=== PATIENT | male | born 2000 | race American Indian/Alaskan Native ===

== ENCOUNTER 2018-05-13 14:09 | Emergency (ER) | payer OTHER ==
--- NOTE | 2018-05-13 14:42 | Emergency Department Report ---
Blank Doc - Documentation Documentation: 18 y male at work yesterday accidentally injured his finger while trying to ca tch himself from falling. no fall injury XR ACC evaluate
[2018-05-13 14:43] VITALS: BP 128/82
--- NOTE | 2018-05-13 15:36 | XRay Report ---
Left hand: Injury, pain. There is fragmentation of the distal tuft of the fifth digit and there is focal swelling of the distal digit. There may be a laceration at the nail bed. No foreign body noted. The remainder the fifth digit as well as the remainder of the hand is unremarkable. Impression: Fifth digit injury with tuft fracture.
--- NOTE | 2018-05-13 15:44 | Emergency Department Report ---
ED Extremity Problem HPI - General Chief complaint: Laceration/Recheck/Suture Stated complaint: LFT HAND PINKY/PAIN Time Seen by Provider: 05/13/18 14:38 Source: patient Mode of arrival: Ambulatory Limitations: Language Barrier - History of Present Illness Initial comments: Patient is a 18-year-old male who yesterday was on a scaffold and to ca tc himself from falling reached up and had his left pinky finger caught in between 2 pieces of wood. His nail was ripped off and he's had significant bleeding and pain at the distal left hand overnight. The patient states as a throbbing sensation is 8 out of 10 in severity. Patient denies any fevers chills it's time. - Related Data Previous Rx's Medication Instructions Recorded Last Taken Type Clindamycin [Clindamycin CAP] 300 mg PO Q8H 7 Days cap 05/13/18 Unknown Rx HYDROcodone/APAP 5-325 [Elverta 1 each PO Q6HR PRN #15 tablet 05/13/18 Unknown Rx 5/325] Ibuprofen [Motrin] 600 mg PO Q8H PRN #20 tablet 05/13/18 Unknown Rx ED Review of Systems ROS: Stated complaint: LFT HAND PINKY/PAIN Other details as noted in HPI Comment: All other systems reviewed and negative ED Past Medical Hx - Past Medical History Previous Medical History?: No - Surgical History Past Surgical History?: No - Social History Smoking Status: Never Smoker Substance Use Type: None - Medications Home Medications: Home Medications Medication Instructions Recorded Confirmed Last Taken Type Clindamycin [Clindamycin CAP] 300 mg PO Q8H 7 Days cap 05/13/18 Unknown Rx HYDROcodone/APAP 5-325 [Elverta 1 each PO Q6HR PRN #15 tablet 05/13/18 Unknown Rx 5/325] Ibuprofen [Motrin] 600 mg PO Q8H PRN #20 tablet 05/13/18 Unknown Rx ED Physical Exam - General Limitations: Language Barrier General appearance: alert, in no apparent distress - Head Head exam: Present: atraumatic, normocephalic - Eye Eye exam: Present: normal appearance - ENT ENT exam: Present: mucous membranes moist - Neck Neck exam: Present: normal inspection - Respiratory Respiratory exam: Present: normal lung sounds bilaterally. Absent: respiratory distress, wheezes, rales - Cardiovascular Cardiovascular Exam: Present: regular rate, normal rhythm. Absent: systolic murmur, diastolic murmur, rubs, gallop - GI/Abdominal GI/Abdominal exam: Present: soft, normal bowel sounds - Rectal Rectal exam: Present: deferred - Extremities Exam Extremities exam: Present: normal inspection, other (patient's left fifth digit shows injury to the nailbed. Of serious scabbed over with just minimal amount of bleeding currently. There is mild swelling and tenderness to palpation.) - Back Exam Back exam: Present: normal inspection - Neurological Exam Neurological exam: Present: alert, oriented X3 - Psychiatric Psychiatric exam: Present: normal affect, normal mood - Skin Skin exam: Present: warm, dry, intact, normal color. Absent: rash ED Course Vital Signs 05/13/18 14:40 Temperature 98.7 F Pulse Rate 66 Respiratory 18 Rate Blood Pressure 128/82 [Right] O2 Sat by Pulse 98 Oximetry ED Medical Decision Making - Radiology Data Radiology results: image reviewed (patient with a distal phalanx tuft fracture of the fifth left digit) - Medical Decision Making Patient will be started on antibiotics for his open fracture. Patient also had his wound dressed with Xeroform gauze and a bulky dressing to be discharged home. Critical care attestation.: If time is entered above; I have spent that time in minutes in the direct care of this critically ill patient, excluding procedure time. ED Disposition Clinical Impression: Nailbed avulsion Phalanx, hand fracture, open Qualifiers: Encounter type: initial encounter Qualified Code(s): S62.609B - Fracture of unspecified phalanx of unspecified finger, initial encounter for open fracture Disposition: - TO HOME OR SELFCARE Is pt being admited?: No Does the pt Need Aspirin: No Condition: Stable Instructions: Finger Fracture (ED), Toenail/Fingernail Removal (ED) Time of Disposition: 15:44 Print Language: [email or web address]
== END 2018-05-13 15:45 | disposition home or self-care (01) ==
LOC: ED 14:09
DX: S62.637A Displaced fracture of distal phalanx of left little finger, initial encounter for closed fracture (principal); S61.307A Unspecified open wound of left little finger with damage to nail, initial encounter; W23.0XXA Caught, crushed, jammed, or pinched between moving objects, initial encounter; Y93.89 Activity, other specified; Y92.89 Other specified places as the place of occurrence of the external cause; Y99.8 Other external cause status